=== PATIENT | male | born 1960 | race Caucasian/White ===

== ENCOUNTER → 2016-12-21 | Outpatient (CLI) | payer OTHER ==
--- NOTE | 2016-12-21 17:13 | HP ---
Date/Time of Note Date/Time of Note DATE: 12/21/16 TIME: 16:59 Assessment/Plan VTE Prophylaxis VTE Prophylaxis Intervention: ambulation Assessment/Plan Chief Complaint/Hosp Course Right knee pain primarily to the lateral compartment. Problems: (1) Osteoarthritis of right knee Status: Chronic Qualifiers: Osteoarthritis type: primary Qualified Code: M17.11 - Primary osteoarthritis of right knee Assessment/Plan * Patient is provided verbal and written consent. Cortisone injection performed today. * Patient was advised to take ibuprofen 800 mg 3 times a day consistently for osteoarthritis and he states understanding. Rest, ice, compression also recommended. While patient is at rest, elevate the leg. * Given presentation of degenerative joint disease especially to the lateral compartment, surgery was discussed in regards to total knee arthroplasty but patient states that this time he does not wish to explore surgical intervention. Patient made aware that he may follow-up to see how successful cortisone injection was in 3-4 months. If patient is having ongoing relief he may cancel appointment and follow-up as needed. Patient prefers to follow-up as needed. * It was made clear however, that he will likely need total knee arthroplasty consultation in the future and he states understanding. He will follow-up as needed from this point and continue with anti-inflammatories and supportive measures. HPI/ROS Admit Date/Time Admit Date/Time Hx of Present Illness 56-year-old male presents today as a new patient for right knee pain that is been present for the past 2 years. 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 Patient complains of off-and-on pain to the right knee that can typically elevate to a 7/10 on the pain scale. Pain primarily exacerbates with ascending and descending stairs. Pain is of insidious onset. Pain can occur at random. 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 Although he states that it does not involve a lot of heavy stress physical labor he does typically move 20 pound objects back and forth. Pain typically occurs when he twists his knee. Patient denies any past knee injury, surgery, injection or physical therapy to the right knee as he has had no particular complaints up until about 2 years ago. Patient does take ibuprofen 800 mg but rarely. Ibuprofen 800 mg does provide mild relief. Patient is beginning to develop concern as he now has difficulty performing his activities of daily living, although he can still perform them secondary to pain. Pain is primarily to the lateral compartment of the knee. Patient has had past MRIs and x-rays. Most recent MRI was performed on 11/11/2016 and most recent x-ray was performed on 12/04/2015. Presents today for evaluation. ROS Constitutional: no complaints Eyes: no complaints ENT: no complaints Respiratory: no complaints Cardiovascular: no complaints Gastrointestinal: no complaints Musculoskeletal: bone/joint pain (Right knee), no complaints Skin: no complaints Neurologic: no complaints Endocrine: no complaints Lymphatic: no complaints Psychological: no complaints Immunologic: no complaints PMH/Family/Social Past Medical History Medical History: no pertinent history Past Surgical History Past Surgical Hx: no surgical history Family History Significant Family History: no pertinent family hx Social History Smoking Status: Never smoker Drug Use: none Exam/Review of Systems Vital Signs Vitals Blood pressure is 108/66, temperature is 98.1, pulse is 65, respiratory rate is 12, height is 5 foot 5 inches, weight is 165 pounds Exam Exam Right knee: Mild valgus presentation on inspection. Tenderness to palpation to the lateral compartment of the knee. Patient exhibits full range of motion with flexion and extension. 5/5 strength on resistance with flexion and extension. Negative Candace's test. Patient has positive tricompartmental crepitus. Gait is normal and nonantalgic. No hip pain and full range of motion to the hip on exam today. Imaging: Patient presents with x-ray images from outside facility performed on 12/04/2015 significant for tricompartmental osteoarthritic changes which is more mild to moderate to the medial compartment and patellofemoral compartment with severe degenerative joint disease/near [id number] deformity to the lateral compartment. Patient's pain also correlates with x-rays as his majority of complaints is to the lateral compartment. MRI from [facility] performed on 11/11/2016 is significant for # 1 tricompartmental osteo-arthritis, very severe and predominate in the lateral femoral tibial compartment. #2 extensive degenerative tearing and near complete maceration of the lateral meniscus. #3 moderate-sized knee joint effusion with synovitis (with 7 mm posterior intra-articular body). Small popliteal cyst, and semimembranosus bursitis. #4 no acute fracture or acute ligamentous abnormality. Constitutional: alert, oriented, well developed Psych: no complaints Head: atraumatic, normocephalic Musculoskeletal: joint tenderness (Lateral compartment of the right knee) Neurological: nl speech, nl strength Skin: nl turgor Medications Medications Ibuprofen 800 mg. Procedures Procedures Patient has provided verbal and written consent. Medial compartment of the right knee was cleaned with Betadine swab. 80 mg Kenalog in 6 cc of 2% lidocaine injected to the medial compartment of the right knee. Patient tolerated procedure well. 25-gauge needle was used to inject the right knee. Band-Aid applied after injection. Patient was observed for 5- 10 minutes after injection with no complaints or complications. Patient was then discharged. YEN CABRERA PA-C Dec 21, 2016 17:09
== END | disposition home or self-care (01) ==
LOC: HKI 14:55
DX: M17.11 Unilateral primary osteoarthritis, right knee (principal)
CPT/HCPCS: 20610; Z7500; Z7610; G0463

== ENCOUNTER → 2017-05-24 | Outpatient (CLI) | END | disposition home or self-care (01) ==

== ENCOUNTER → 2017-07-01 | Outpatient (CLI) | END | disposition home or self-care (01) ==